=== PATIENT | female | born 1990 | race Caucasian/White ===

== ENCOUNTER 2018-03-22 09:35 | Emergency (ER) | payer OTHER ==
[2018-03-22 09:48] VITALS: BMI 26.5
--- NOTE | 2018-03-22 10:00 | PDOC ---
History of Present Illness - General Chief Complaint: Edema Stated Complaint: REVISIT/ ALLERGIC RXN, CHEST TIGHTNESS Time Seen by Provider: 03/22/18 09:51 Past History - Travel Traveled outside of the country in the last 30 days: No Close contact w/someone who was outside of country & ill: No - Past Medical History Allergies/Adverse Reactions: Allergies Allergy/AdvReac Type Severity Reaction Status Date / Time No Known Allergies Allergy Verified 03/22/18 09:44 Home Medications: Ambulatory Orders NK [No Known Home Medication] 03/22/18 Asthma: Yes (childhood) COPD: No - Immunization History Immunization Up to Date: Yes - Suicide/Smoking/Psychosocial Hx Smoking Status: No Smoking History: Never smoked Number of Cigarettes Smoked Daily: 0 Hx Alcohol Use: No Drug/Substance Use Hx: No Substance Use Type: None Review of Systems - Review of Systems Able to Perform ROS?: Yes Comments:: 03/22/18 10:40 CONSTITUTIONAL: Present: body aches Absent: fever, chills, diaphoresis, generalized weakness, loss of appetite HEENT: Absent: rhinorrhea, nasal congestion, throat pain, throat swelling, difficulty swallowing, mouth swelling, ear pain, eye pain, visual Changes CARDIOVASCULAR: Absent: chest pain, loss of consciousness, palpitations, irregular heart rate RESPIRATORY: Absent: cough, shortness of breath, dyspnea with exertion, orthopnea, wheezing, stridor, hemoptysis GASTROINTESTINAL: Absent: abdominal pain, abdominal distension, nausea, vomiting, diarrhea, constipation, melena, hematochezia GENITOURINARY: Absent: dysuria, frequency, urgency, hesitancy, hematuria, flank pain, genital pain MUSCULOSKELETAL: Present: pedal edema. Absent: myalgia, arthralgia, joint swelling SKIN: Absent: rash, itching, pallor HEMATOLOGIC/IMMUNOLOGIC: Absent: easy bleeding, easy bruising, lymphadenopathy, frequent infections ENDOCRINE: Absent: unexplained weight gain, unexplained weight loss, heat intolerance, cold intolerance NEUROLOGIC: Absent: headache, focal weakness or paresthesias, dizziness, unsteady gait, seizure, mental status changes, bladder or bowel incontinence PSYCHIATRIC: Absent: anxiety, depression, suicidal or homicidal ideation, hallucinations. Is the patient limited Somali proficient: No *Physical Exam - Vital Signs Last Vital Signs Temp Pulse Resp BP Pulse Ox 98.4 F 82 18 123/60 99 03/22/18 09:44 03/22/18 09:44 03/22/18 09:44 03/22/18 09:44 03/22/18 09:44 - Physical Exam Comments: 03/22/18 10:41 GENERAL: Well developed, well nourished. Awake and alert. No acute distress. HEENT: Normocephalic, atraumatic. PERRLA, EOMI. No conjunctival pallor. Sclera are non- icteric. Moist mucous membranes. Oropharynx is clear. NECK: Supple. Full ROM. No JVD. Carotid pulses 2+ and symmetric, without bruits. No thyromegaly. No lymphadenopathy. CARDIOVASCULAR: Regular rate and rhythm. No murmurs, rubs, or gallops. Distal pulses are 2+ and symmetric. PULMONARY: No evidence of respiratory distress. Lungs clear to auscultation bilaterally. No wheezing, rales or rhonchi. ABDOMINAL: Soft. Non-tender. Non-distended. No rebound or guarding. No organomegaly. Normoactive bowel sounds. MUSCULOSKELETAL Normal range of motion at all joints. No bony deformities or tenderness. No CVA tenderness. EXTREMITIES: 1+ pitting edema to the L leg. Trace pedal edema in the R foot. No cyanosis. No clubbing. No calf tenderness. SKIN: Warm and dry. Normal capillary refill. No rashes. No jaundice. NEUROLOGICAL: Alert, awake, appropriate. Cranial nerves 2-12 intact. No deficits to light touch and temperature in face, upper extremities and lower extremities. No motor deficits in the in face, upper extremities and lower extremities. Normoreflexic in the upper and lower extremities. Normal speech. Toes are down- going bilaterally. Gait is normal without ataxia. PSYCHIATRIC: Cooperative. Good eye contact. Appropriate mood and affect. ED Treatment Course - LABORATORY CBC & Chemistry Diagram: 03/22/18 10:35 03/22/18 10:35 *DC/Admit/Observation/Transfer Diagnosis at time of Disposition: Edema Qualifiers: Edema type: unspecified Qualified Code(s): R60.9 - Edema, unspecified - Discharge Dispostion Disposition: HOME Condition at time of disposition: Stable Decision to Admit order: No - Referrals Referrals: Gustavo Andrade MD [Primary Care Provider] - Teddy Aparicio MD [Staff Physician] - Yaneli Hatch MD [Staff Physician] - - Patient Instructions Printed Discharge Instructions: DI for Peripheral Edema -- Bilateral Additional Instructions: Your evaluated for your edema today (leg swelling) Your lab work is normal. Lyme titers were drawn today and they were sent out. Please call in 2-3 days for results. Please resume both the prednisone and the Atarax as previously prescribed. He may take Tylenol or Motrin as needed for pain. Please follow the sweater designer 's instructions. Please follow up with the museum docent provided for you, Dr. Mclean Return to the emergency department if you have difficulty breathing, worsening swelling, shortness of breath, or if you have any changes in your symptoms. - Post Discharge Activity Forms/Work/School Notes: Back to Work
[2018-03-22] MEDS ORDERED: ACETAMINOPHEN 325 MG TABLET (FP) PO ONE (10:10)
[2018-03-22] MEDS ORDERED: SODIUM CHLORIDE 1,000 ML IV STA (10:10)
[2018-03-22] MEDS ORDERED: methylPREDNISolone NA SUCC 125 MG/2 ML VIAL IVPUSH ONE (10:11)
[2018-03-22] MEDS ORDERED: hydrOXYzine HCL 25 MG TABLET (FP) PO ONE (10:11)
[2018-03-22] MEDS ORDERED: ACETAMINOPHEN 325 MG TABLET (FP) ONE (10:17)
[2018-03-22] MEDS ORDERED: methylPREDNISolone NA SUCC 125 MG/2 ML VIAL ONE (10:17)
[2018-03-22 11:06] LABS: ALBUMIN 3.5 g/dl (3.4-5.0); ANION GAP 7 (8-16); BILIRUBIN,TOTAL 0.4 mg/dL (0.2-1.0); BLOOD UREA NITROGEN 12 mg/dL (7-18); CALCIUM 8.4 mg/dL (8.5-10.1); CHLORIDE 107 mmol/L (98-107); CO2 28 mmol/L (21-32); CREATININE 0.7 mg/dL (0.55-1.02); GLUCOSE,RANDOM 81 mg/dL (74-106); POTASSIUM 3.7 mmol/L (3.5-5.1); SGOT/AST 17 U/L (15-37); SGPT/ALT 20 U/L (12-78); SODIUM 142 mmol/L (136-145); TOT PROT 7.1 g/dl (6.4-8.2)
[2018-03-22 11:07] LABS: ALK PHOS 59 U/L (45-117)
[2018-03-22 11:17] LABS: URINE APPEARANCE SLCLOUDY; URINE BILIRUBIN NEGATIVE (<2.0 mg/dL); URINE COLOR YELLOW; URINE GLUCOSE (UA) NEGATIVE (NEGATIVE); URINE KETONE NEGATIVE (NEGATIVE); URINE LEUK ESTERASE TRACE (NEGATIVE); URINE NITRITE NEGATIVE (NEGATIVE); URINE PROTEIN NEGATIVE (NEGATIVE); URINE UROBILINOGEN NEGATIVE mg/dL (0.2-1.0)
[2018-03-22 11:26] LABS: EPI CELLS FEW /HPF (FEW); URINE MUCUS RARE
--- NOTE | 2018-03-22 11:46 | PDOC ---
*Physical Exam - Vital Signs Last Vital Signs Temp Pulse Resp BP Pulse Ox 98.4 F 82 18 123/60 99 03/22/18 09:44 03/22/18 09:44 03/22/18 09:44 03/22/18 09:44 03/22/18 09:44 - Physical Exam Neck: positive: Trachea midline Respiratory/Chest: positive: Lungs Clear, Normal Breath Sounds Cardiovascular: positive: Regular Rhythm, Regular Rate, S1, S2 Gastrointestinal/Abdominal: positive: Normal Bowel Sounds, Flat, Soft. negative : Tender Extremity: positive: Pedal Edema (nonpitting pedal edema ) Integumentary: positive: Normal Color, Dry, Warm, Other (no rash) Neurologic: positive: Fully Oriented, Alert, Normal Mood/Affect ED Treatment Course - LABORATORY CBC & Chemistry Diagram: 03/22/18 10:35 03/22/18 10:35 - ADDITIONAL ORDERS Additional order review: Laboratory Results 03/22/18 03/22/18 03/22/18 11:01 10:35 10:35 Sodium 142 Potassium 3.7 Chloride 107 Carbon Dioxide 28 Anion Gap 7 L BUN 12 Creatinine 0.7 Creat Clearance w eGFR > 60 Random Glucose 81 Calcium 8.4 L Total Bilirubin 0.4 AST 17 ALT 20 Alkaline Phosphatase 59 Creatine Kinase 54 Troponin I < 0.02 Total Protein 7.1 Albumin 3.5 Urine Color Yellow Urine Appearance Slcloudy Urine pH 5.0 Ur Specific [place] 1.010 Urine Protein Negative Urine Glucose (UA) Negative Urine Ketones Negative Urine Blood Negative Urine Nitrite Negative Urine Bilirubin Negative Urine Urobilinogen Negative Ur Leukocyte Esterase Trace - Medications Given in the ED: ED Medications Discontinued Medications Generic Name Dose Route Start Last Admin Trade Name Gerryq PRN Reason Stop Dose Admin Acetaminophen 650 mg 03/22/18 10:10 03/22/18 10:36 Tylenol - PO 03/22/18 10:11 650 mg ONCE ONE Administration Hydroxyzine HCl 25 mg 03/22/18 10:11 03/22/18 10:47 Atarax - PO 03/22/18 10:12 25 mg ONCE ONE Administration Sodium Chloride 1,000 mls @ 1,000 mls/hr 03/22/18 10:10 03/22/18 10:36 Normal Saline - IV 03/22/18 11:09 1,000 mls/hr ASDIR STA Administration Methylprednisolone Sodium Succinate 125 mg 03/22/18 10:11 03/22/18 10:36 Solu-Medrol - IVPUSH 03/22/18 10:12 125 mg ONCE ONE Administration Medical Decision Making - Medical Decision Making 03/22/18 11:43 27 yo F with c/o recent rash developed over extremities and face last few days, now c/o bilat lower ext swelling and hand swellig. c/o generalized body aches and back pain. no urinary complaints or changs. was seen at [facility] and started on steroids 3 days ago, just ran out. now taking atarax. pt seen and examined with damion Zamudio agree with assessment and plan review pt images in phone appears malar distribution of face across cheeks and forehead,sparing nasolabial folds. and urticarial like on extremities. pt mother with history rheumatoid arthritis. 03/22/18 11:46
[2018-03-22 13:04] LABS: BASO % 0.2 % (0-2.0); EOS % 1.1 % (0-4.5); HEMATOCRIT 32.7 % (32.4-45.2); HEMOGLOBIN 10.8 GM/dL (10.7-15.3); LYMPH % 33.1 % (8-40); MCH 29.6 pg (25.7-33.7); MCHC 33.1 g/dl (32.0-36.0); MEAN CELL VOLUME 89.5 fl (80-96); MEAN PLT VOLUME 8.9 fl (7.5-11.1); MONO % 5.2 % (3.8-10.2); NEUT % 60.4 % (42.8-82.8); PLATELET COUNT 328 K/MM3 (134-434); RBC 3.66 M/mm3 (3.60-5.2); RDW 14.8 % (11.6-15.6); WHITE BLOOD COUNT 6.4 K/mm3 (4.0-10.0)
[2018-03-22 13:08] VITALS: BP 120/68; TEMP 98.3
[2018-03-22 13:30] VITALS: PULSE 62
--- NOTE | 2018-03-24 14:13 | EKG ---
Test Reason : Blood Pressure : / mmHG Vent. Rate : 081 BPM Atrial Rate : 081 BPM P-R Int : 126 ms QRS Dur : 094 ms QT Int : 400 ms P-R-T Axes : 031 046 026 degrees QTc Int : 464 ms NORMAL SINUS RHYTHM NORMAL ECG WHEN COMPARED WITH ECG OF 11-JUN-2014 20:31, T WAVE INVERSION NOW EVIDENT IN ANTERIOR LEADS Confirmed by ABHIJEET SINCLAIR MD ([id number]) on 03/24/2018 2:13:23 PM Referred By: Confirmed By:ABHIJEET SINCLAIR MD
== END 2018-03-22 13:30 | disposition home or self-care (01) ==
LOC: JER 09:35
PROC: 3E033GC Introduction of Other Therapeutic Substance into Peripheral Vein, Percutaneous Approach (ICD-10-PCS; principal; 2018-03-22)
PROC: 3E0337Z Introduction of Electrolytic and Water Balance Substance into Peripheral Vein, Percutaneous Approach (ICD-10-PCS; 2018-03-22)
DX: R60.9 Edema, unspecified (principal)
CPT/HCPCS: 36415; 80053; 81003; 81015; 82550; 84484; 85025; 86618; 93005; 93010; 99284-25; J7030

== ENCOUNTER 2022-10-03 12:38 | Emergency (ER) | payer OTHER ==
[2022-10-03 12:50] VITALS: BP 125/71; PULSE 87; RESP 18; TEMP 97.3; BMI 26.5
[2022-10-03] MEDS ORDERED: ACETAMINOPHEN 1000 MG/100 ML BAG IVPB ONE (13:25)
[2022-10-03] MEDS ORDERED: SODIUM CHLORIDE 1,000 ML IV STA (13:25)
[2022-10-03] MEDS ORDERED: ACETAMINOPHEN INJECTION 100 ML IVPB ONE (13:33)
[2022-10-03 13:48] LABS: BASO % 1.3 % (0-2.0); EOS % 3.4 % (0-4.5); HEMATOCRIT 34.6 % (32.4-45.2); HEMOGLOBIN 11.6 GM/dL (10.7-15.3); LYMPH % 28.7 % (8-40); MCH 30.4 pg (25.7-33.7); MCHC 33.4 g/dl (32.0-36.0); MEAN PLT VOLUME 7.7 fl (7.5-11.1); MONO % 9.4 % (3.8-10.2); NEUT % 57.2 % (42.8-82.8); PLATELET COUNT 382 10^3/uL (134-434); WHITE BLOOD COUNT 7.6 K/mm3 (4.0-10.0)
[2022-10-03 13:54] LABS: EPI CELLS >36 /uL (0-25.1); HCG,QUALITATIVE URINE Negative; HYALINE CASTS 1 /uL (0-3.1); URINE APPEARANCE CLOUDY; URINE BACTERIA 1220 /uL (0-1359); URINE BILIRUBIN NEGATIVE (NEGATIVE); URINE COLOR YELLOW; URINE GLUCOSE (UA) NEGATIVE (NEGATIVE); URINE KETONE NEGATIVE (NEGATIVE); URINE LEUK ESTERASE 2+ (NEGATIVE); URINE NITRITE NEGATIVE (NEGATIVE); URINE PROTEIN NEGATIVE (NEGATIVE); URINE RBC 15 /uL (0-23.9); URINE UROBILINOGEN 0.2 mg/dL (0.2-1.0); URINE WBC 31 /uL (0-25.8)
[2022-10-03 14:11] LABS: CHLORIDE 107 mmol/L (98-107); SODIUM 140 mmol/L (136-145)
[2022-10-03 14:13] LABS: CALCIUM 8.6 mg/dL (8.5-10.1)
[2022-10-03 14:14] LABS: ALBUMIN 3.2 g/dl (3.4-5.0); ANION GAP 8 MMOL/L (8-16); CO2 25 mmol/L (21-32); GLUCOSE,RANDOM 74 mg/dL (74-106)
[2022-10-03 14:17] LABS: CREATININE 0.6 mg/dL (0.55-1.3); SGOT/AST 123 U/L (15-37); SGPT/ALT 73 U/L (13-61)
[2022-10-03 14:19] LABS: BILIRUBIN,TOTAL 0.3 mg/dL (0.2-1); TOT PROT 7.1 g/dl (6.4-8.2)
[2022-10-03 14:20] LABS: ALK PHOS 44 U/L (45-117)
[2022-10-03] MEDS ORDERED: KETOROLAC TROMETHAMINE 30 MG/1 ML VIAL IVPUSH ONE (14:29)
[2022-10-03] MEDS ORDERED: KETOROLAC TROMETHAMINE 30 MG/1 ML VIAL ONE (14:43)
== END 2022-10-03 15:16 | disposition home or self-care (01) ==
LOC: JERFT 12:38
PROC: 3E0333Z Introduction of Anti-inflammatory into Peripheral Vein, Percutaneous Approach (ICD-10-PCS; principal; 2022-10-03)
PROC: 3E0333Z Introduction of Anti-inflammatory into Peripheral Vein, Percutaneous Approach (ICD-10-PCS; 2022-10-03)
PROC: 3E0337Z Introduction of Electrolytic and Water Balance Substance into Peripheral Vein, Percutaneous Approach (ICD-10-PCS; 2022-10-03)
DX: M35.05 Sjogren syndrome with inflammatory arthritis (principal); M25.59 Pain in other specified joint
CPT/HCPCS: 36415; 80053; 81003; 84443; 84703; 85025; 85651; 86140; 86618; 87086; 87186; 99284-25

== ENCOUNTER 2022-12-03 21:52 | Emergency (ER) | payer OTHER ==
[2022-12-03 21:57] VITALS: BP 115/80; PULSE 94; RESP 18; TEMP 98.2; BMI 28.8
[2022-12-03] MEDS ORDERED: PHENAZOPYRIDINE HCL 100 MG TABLET (FP) PO ONE (23:52)
[2022-12-03] MEDS ORDERED: ACETAMINOPHEN 1000 MG/100 ML BAG IVPB ONE (23:57)
[2022-12-04] MEDS ORDERED: PHENAZOPYRIDINE HCL 100 MG TABLET (FP) ONE
[2022-12-04] MEDS ORDERED: ACETAMINOPHEN INJECTION 100 ML IVPB ONE
[2022-12-04] MEDS ORDERED: SODIUM CHLORIDE 1,000 ML IV STA (00:01)
[2022-12-04] MEDS ORDERED: CEFTRIAXONE 1 GM in DEXTROSE 5%-WATER - 100 ML IVPB ONE (00:01)
[2022-12-04] MEDS ORDERED: KETOROLAC TROMETHAMINE 15 MG/ML VIAL IM ONE (00:02)
[2022-12-04 00:58] LABS: EOS % 1.4 % (0-4.5); HEMATOCRIT 34.5 % (32.4-45.2); HEMOGLOBIN 11.7 GM/dL (10.7-15.3); LYMPH % 31.6 % (8-40); MCH 30.6 pg (25.7-33.7); MEAN CELL VOLUME 90.2 fl (80-96); MEAN PLT VOLUME 8.4 fl (7.5-11.1); MONO % 6.5 % (3.8-10.2); NEUT % 59.5 % (42.8-82.8); PLATELET COUNT 374 10^3/uL (134-434); RBC 3.83 M/mm3 (3.60-5.2); RDW 15.1 % (11.6-15.6); URINE APPEARANCE CLEAR; URINE BILIRUBIN NEGATIVE (NEGATIVE); URINE COLOR YELLOW; URINE GLUCOSE (UA) NEGATIVE (NEGATIVE); URINE KETONE NEGATIVE (NEGATIVE); URINE LEUK ESTERASE NEGATIVE (NEGATIVE); URINE NITRITE NEGATIVE (NEGATIVE); URINE PROTEIN NEGATIVE (NEGATIVE); URINE UROBILINOGEN 0.2 mg/dL (0.2-1.0); WHITE BLOOD COUNT 9.1 K/mm3 (4.0-10.0)
[2022-12-04 01:15] LABS: CALCIUM 8.6 mg/dL (8.5-10.1)
[2022-12-04 01:16] LABS: ALBUMIN 3.3 g/dl (3.4-5.0); BLOOD UREA NITROGEN 9.2 mg/dL (7-18)
[2022-12-04 01:19] LABS: CREATININE 0.6 mg/dL (0.55-1.3)
[2022-12-04 01:21] LABS: BILIRUBIN,TOTAL 0.2 mg/dL (0.2-1); TOT PROT 7.3 g/dl (6.4-8.2)
[2022-12-04] MEDS ORDERED: CEFTRIAXONE 1 GM/50 ML BAG ONE (01:54)
[2022-12-04] MEDS ORDERED: KETOROLAC TROMETHAMINE 15 MG/ML VIAL ONE (01:54)
== END 2022-12-04 04:45 | disposition home or self-care (01) ==
LOC: JER 21:52
PROC: 3E033GC Introduction of Other Therapeutic Substance into Peripheral Vein, Percutaneous Approach (ICD-10-PCS; principal; 2022-12-03)
DX: N83.202 Unspecified ovarian cyst, left side (principal)
CPT/HCPCS: 36415; 76830-TC; 80053; 81003; 84703; 85025; 87086; 99284-25